=== PATIENT | female | born 1980 | race Caucasian/White ===

== ENCOUNTER 2018-11-24 22:35 | Emergency (ER) | payer OTHER ==
[2018-11-24 22:46] VITALS: BP 136/73; PULSE 89; TEMP 97.8; BMI 27.8
--- NOTE | 2018-11-24 22:57 | PDOC ---
History of Present Illness <Sarah Santos - Last Filed: 11/25/18 02:45> - History of Present Illness Initial Comments: 11/24/18 22:56 37 yo F with no significant pmh who p/w palpitations, parasthesias, lightheadedness. Patient reports two months of intermittent tinlging of finger tips, right thigh, palpitations, occurring intermittently with no identifiable triggers and resolving spontaneously. + 2 months of room spinning horizontally, with no identifiable triggers or alleviators. Also endorses occasional SOB, nervousness, neck stiffness, dull posterior headache, and hand contractions. Noticed symptoms today while walking at work. Patient denies vision change, cough, wheezing, orthopena, PND, N/V, F,C, CP, urinary complaints, hematuria, BPR, abdominal pain, diarrhea, constipation, weakness. PMHx: as noted above ROS: as noted SHx: Denies IVDA, tobacco use. Social Etoh. 1 cup coffe per day. Allergies: NKDA <Sai Chi - Last Filed: 11/25/18 02:53> - General Chief Complaint: Lightheaded Stated Complaint: PALPITATION Time Seen by Provider: 11/24/18 22:56 Past History <Sarah Santos - Last Filed: 11/25/18 02:45> - Past Medical History COPD: No - Suicide/Smoking/Psychosocial Hx Smoking History: Never smoked Hx Alcohol Use: No Drug/Substance Use Hx: No <Sai Chi - Last Filed: 11/25/18 02:53> - Past Medical History Allergies/Adverse Reactions: Allergies Allergy/AdvReac Type Severity Reaction Status Date / Time No Known Allergies Allergy Verified 11/24/18 22:46 Home Medications: Ambulatory Orders NK [No Known Home Medication] 11/24/18 Review of Systems - Review of Systems Comments:: 11/24/18 22:56 GENERAL/CONSTITUTIONAL: No fever or chills. No weakness. HEAD, EYES, EARS, NOSE AND THROAT: No change in vision. No ear pain or discharge. No sore throat. CARDIOVASCULAR: + SOB. No chest pain. RESPIRATORY: No cough, wheezing, or hemoptysis. GASTROINTESTINAL: No nausea, vomiting, diarrhea or constipation. GENITOURINARY: No dysuria, frequency, or change in urination. MUSCULOSKELETAL: +joint / muscle pain.+ neck pain. SKIN: No rash NEUROLOGIC:+ headache, vertigo. No loss of consciousness, or change in strength/ sensation. ENDOCRINE: No increased thirst. No abnormal weight change HEMATOLOGIC/LYMPHATIC: No anemia, easy bleeding, or history of blood clots. ALLERGIC/IMMUNOLOGIC: No hives or skin allergy. <AlonSai - Last Filed: 11/25/18 02:53> *Physical Exam - Vital Signs Last Vital Signs Temp Pulse Resp BP Pulse Ox 97.8 F 89 16 136/73 99 11/24/18 22:43 11/24/18 22:43 11/24/18 22:43 11/24/18 22:43 11/24/18 22:43 <Sarah Santos - Last Filed: 11/25/18 02:45> - Vital Signs Last Vital Signs Temp Pulse Resp BP Pulse Ox 97.8 F 89 16 136/73 99 11/24/18 22:43 11/24/18 22:43 11/24/18 22:43 11/24/18 22:43 11/24/18 22:43 - Physical Exam Comments: 11/24/18 22:57 GENERAL: Awake, alert, and fully oriented, in no acute distress HEAD: No signs of trauma, normocephalic, atraumatic EYES: PERRLA, EOMI, sclera anicteric, conjunctiva clear ENT: Hearing grossly normal, nares patent, oropharynx clear without exudates. Moist mucosa NECK: Normal ROM, supple, no lymphadenopathy, JVD, or masses LUNGS: No distress, speaks full sentences, clear to auscultation bilaterally HEART: Regular rate and rhythm, normal S1 and S2, no murmurs, rubs or gallops, peripheral pulses normal and equal bilaterally. ABDOMEN: Soft, nontender, normoactive bowel sounds. No guarding, no rebound. No masses EXTREMITIES : Normal inspection, Normal range of motion, no edema. No clubbing or cyanosis. NEUROLOGICAL: Cranial nerves II through XII grossly intact. Normal speech, normal gait, no focal sensorimotor deficits SKIN: Warm, Dry, normal turgor, no rashes or lesions noted <AlonSai - Last Filed: 11/25/18 02:53> ED Treatment Course - LABORATORY CBC & Chemistry Diagram: 11/24/18 23:43 11/25/18 00:40 - ADDITIONAL ORDERS Additional order review: Laboratory Results 11/25/18 11/25/18 11/25/18 01:13 00:40 00:40 Sodium 138 Potassium 4.1 Chloride 106 Carbon Dioxide 28 Anion Gap 4 L BUN 19 H Creatinine 0.9 Creat Clearance w eGFR 70.45 Random Glucose 92 Calcium 8.7 Total Bilirubin 0.5 AST 15 ALT 16 Alkaline Phosphatase 35 L Creatine Kinase Troponin I Total Protein 6.7 Albumin 3.3 L TSH Serum , Qual Negative Urine Color Yellow Urine Appearance Clear Urine pH 6.0 Ur Specific Hurricane 1.012 Urine Protein Negative Urine Glucose (UA) Negative Urine Ketones Negative Urine Blood Negative Urine Nitrite Negative Urine Bilirubin Negative Urine Urobilinogen 1.0 Ur Leukocyte Esterase 1+ H Urine WBC (Auto) 4 Urine RBC (Auto) 1 Urine Casts (Auto) 0 U Epithel Cells (Auto) 0.6 Urine Bacteria (Auto) 63.0 11/24/18 11/24/18 11/24/18 23:43 23:43 23:43 Sodium Cancelled 139 Potassium Cancelled 4.0 Chloride Cancelled 106 Carbon Dioxide Cancelled 29 Anion Gap Cancelled 5 L BUN Cancelled 19 H Creatinine Cancelled 1.0 Creat Clearance w eGFR Cancelled 62.39 Random Glucose Cancelled 97 Calcium Cancelled 9.0 Total Bilirubin Cancelled 0.6 AST Cancelled 10 L ALT Cancelled 18 Alkaline Phosphatase Cancelled 40 L Creatine Kinase 94 100 Troponin I < 0.02 < 0.02 Total Protein Cancelled 7.3 Albumin Cancelled 3.6 TSH 1.63 Serum , Qual Urine Color Urine Appearance Urine pH Ur Specific Hurricane Urine Protein Urine Glucose (UA) Urine Ketones Urine Blood Urine Nitrite Urine Bilirubin Urine Urobilinogen Ur Leukocyte Esterase Urine WBC (Auto) Urine RBC (Auto) Urine Casts (Auto) U Epithel Cells (Auto) Urine Bacteria (Auto) 11/24/18 23:43 Sodium Potassium Chloride Carbon Dioxide Anion Gap BUN Creatinine Creat Clearance w eGFR Random Glucose Calcium Total Bilirubin AST ALT Alkaline Phosphatase Creatine Kinase Troponin I Total Protein Albumin TSH Serum , Qual Negative Urine Color Urine Appearance Urine pH Ur Specific Hurricane Urine Protein Urine Glucose (UA) Urine Ketones Urine Blood Urine Nitrite Urine Bilirubin Urine Urobilinogen Ur Leukocyte Esterase Urine WBC (Auto) Urine RBC (Auto) Urine Casts (Auto) U Epithel Cells (Auto) Urine Bacteria (Auto) 11/24/18 23:43 RBC 4.56 MCV 87.4 MCHC 33.7 RDW 12.9 MPV 8.0 Neutrophils % 55.5 Lymphocytes % 30.6 Monocytes % 10.4 H Eosinophils % 2.9 Basophils % 0.6 - RADIOLOGY Radiology Studies Ordered: Category Date Time Status HEAD CT WITHOUT CONTRAST [CT] Stat CT Scan 11/25/18 00:01 Taken - Medications Given in the ED: ED Medications Discontinued Medications Generic Name Dose Route Start Last Admin Trade Name Alec PRN Reason Stop Dose Admin Cyclobenzaprine HCl 10 mg 11/25/18 01:54 11/25/18 02:02 Flexeril - PO 11/25/18 01:55 10 mg ONCE ONE Administration <Sarah Santos - Last Filed: 11/25/18 02:45> - LABORATORY CBC & Chemistry Diagram: 11/24/18 23:43 11/25/18 00:40 <Sai Chi - Last Filed: 11/25/18 02:53> Medical Decision Making - Medical Decision Making 11/24/18 23:17 37 yo F with no significant pmh who p/w 2 months of intermittent palpitations, parasthesias, lightheadedness, SOB, spinning sensation of room, occurring intermittently with no identifiable triggers and resolving spontaneously. Vitals wnl, AF, A&Ox3. Physical exam unremarkable. Denies vision change, cough , wheezing, orthopena, PND, N/V, F,C, CP, urinary complaints, hematuria, BPR, abdominal pain, diarrhea, constipation, weakness. Will assess for VBI/TIA, cardiac dysarrythmias, hypoglycemia, electrolyte abnml, metabolic and toxic derangements, acid-base disturbances, infection. Possible anxiety disorder. Ed Course: 11/24/18 23:36 EKG: NSR with incomplete RBBB. TWI V2-V3. Nml interval duration, axis, R wave progression. 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 <Sai Chi - Last Filed: 11/25/18 02:53> *DC/Admit/Observation/Transfer - Discharge Dispostion Decision to Admit order: No <SantosSarah - Last Filed: 11/25/18 02:45> <Sai Chi - Last Filed: 11/25/18 02:53> Diagnosis at time of Disposition: Palpitations, Lightheaded - Discharge Dispostion Disposition: HOME Condition at time of disposition: Stable - Referrals Referrals: Yoselin Logan MD [Primary Care Provider] - Preston Harper MD [Staff Physician] - - Patient Instructions Printed Discharge Instructions: DI for Numbness/tingling, DI for Dizziness- Nonvertigo Additional Instructions: Please return to the emergency department with any new or worsening symptoms or concerns. Please follow up with your primary care physician within 72 hours.
--- NOTE | 2018-11-24 23:07 | PDOC ---
Attending Attestation - HPI HPI: 11/24/18 23:42 The patient is a 37 year old female with no past medical history here today for evaluation of palpitations, lightheadedness, paresthesia in her hands, and room spinning. The patient reports that this has been going on for 1 month and also notes headache and neck stiffness. She reports coming in today because her symptoms were worse especially her paresthesia and dizziness. 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 Patient denies fever, chills. Denies chest pain, shortness of breath. Denies nausea, vomiting, diarrhea, abdominal pain. Allergies: NKA - Physicial Exam PE: 11/24/18 23:50 GENERAL: Awake, alert, and fully oriented, in no acute distress HEAD: No signs of trauma EYES: +lateral nystagmus when looking to the right in bilateral eyes. PERRLA, EOMI, sclera anicteric, conjunctiva clear ENT: Auricles normal inspection, hearing grossly normal, nares patent, oropharynx clear without exudates. Moist mucosa NECK: Normal ROM, supple, no lymphadenopathy, JVD, or masses LUNGS: Breath sounds equal, clear to auscultation bilaterally. No wheezes, and no crackles HEART: Regular rate and rhythm, normal S1 and S2, no murmurs, rubs or gallops ABDOMEN: Soft, nontender, normoactive bowel sounds. No guarding, no rebound. No masses EXTREMITIES: Normal range of motion, no edema. No clubbing or cyanosis. No cords, erythema, or tenderness NEUROLOGICAL: Cranial nerves II through XII grossly intact. Normal speech, normal gait SKIN: Warm, Dry, normal turgor, no rashes or lesions noted. <Connor Foster - Last Filed: 11/24/18 23:50> - Resident Resident Name: Sai Chi - ED Attending Attestation I have performed the following: I have examined & evaluated the patient, The case was reviewed & discussed with the resident, I agree w/resident's findings & plan - Medical Decision Making 11/25/18 02:45 Patient Name: NICOLE DAVENPORT THIS IS A PRELIMINARY REPORT FROM [facility] DATE OF SERVICE: 2018-11-25 01:42:14 IMAGES: 141 EXAM: HEAD CT WITHOUT CONTRAST HISTORY: Dizziness COMPARISON: None. FINDINGS: The ventricular system is midline and nondilated. The sulcal pattern is normal for the patient's age. There is no bleed, mass, extra-axial fluid collection or mass effect. No skull fracture or skull lesion is identified. The visualized paranasal sinuses and mastoid air cells are clear. IMPRESSION: Normal exam <Sarah Santos - Last Filed: 11/25/18 02:45> Attestations - Attestations 11/24/18 23:42 Documentation prepared by KEREN Huerta, acting as medical physics researcher for Sarah Santos MD. <Connor Foster - Last Filed: 11/24/18 23:50>
[2018-11-24 23:56] LABS: BASO % 0.6 % (0-2.0); EOS % 2.9 % (0-4.5); HEMATOCRIT 39.9 % (32.4-45.2); HEMOGLOBIN 13.4 GM/dL (10.7-15.3); LYMPH % 30.6 % (8-40); MCH 29.4 pg (25.7-33.7); MCHC 33.7 g/dl (32.0-36.0); MEAN CELL VOLUME 87.4 fl (80-96); MONO % 10.4 % (3.8-10.2); NEUT % 55.5 % (42.8-82.8); PLATELET COUNT 219 K/MM3 (134-434); RBC 4.56 M/mm3 (3.60-5.2); RDW 12.9 % (11.6-15.6); WHITE BLOOD COUNT 7.2 K/mm3 (4.0-10.0)
[2018-11-25 00:41] LABS: ALBUMIN 3.6 g/dl (3.4-5.0); ALK PHOS 40 U/L (45-117); ANION GAP 5 MMOL/L (8-16); BILIRUBIN,TOTAL 0.6 mg/dL (0.2-1); BLOOD UREA NITROGEN 19 mg/dL (7-18); CHLORIDE 106 mmol/L (98-107); CO2 29 mmol/L (21-32); GLUCOSE,RANDOM 97 mg/dL (74-106); SGOT/AST 10 U/L (15-37); SGPT/ALT 18 U/L (13-61); SODIUM 139 mmol/L (136-145); TOT PROT 7.3 g/dl (6.4-8.2)
[2018-11-25 01:40] LABS: EPI CELLS 0.6 /HPF (0-5/HPF); URINE APPEARANCE CLEAR; URINE BILIRUBIN NEGATIVE (NEGATIVE); URINE CASTS 0 /hpf (0-8); URINE COLOR YELLOW; URINE GLUCOSE (UA) NEGATIVE (NEGATIVE); URINE KETONE NEGATIVE (NEGATIVE); URINE LEUK ESTERASE 1+ (NEGATIVE); URINE NITRITE NEGATIVE (NEGATIVE); URINE PROTEIN NEGATIVE (NEGATIVE); URINE RBC 1 /hpf (0-4); URINE WBC 4 /hpf (0-5)
[2018-11-25 01:43] LABS: ALBUMIN 3.3 g/dl (3.4-5.0); ALK PHOS 35 U/L (45-117); ANION GAP 4 MMOL/L (8-16); BILIRUBIN,TOTAL 0.5 mg/dL (0.2-1); BLOOD UREA NITROGEN 19 mg/dL (7-18); CALCIUM 8.7 mg/dL (8.5-10.1); CHLORIDE 106 mmol/L (98-107); CO2 28 mmol/L (21-32); CREATININE 0.9 mg/dL (0.55-1.3); GLUCOSE,RANDOM 92 mg/dL (74-106); POTASSIUM 4.1 mmol/L (3.5-5.1); SGOT/AST 15 U/L (15-37); SGPT/ALT 16 U/L (13-61); SODIUM 138 mmol/L (136-145); TOT PROT 6.7 g/dl (6.4-8.2)
[2018-11-25] MEDS ORDERED: CYCLOBENZAPRINE HCL 10 MG TABLET (FP) PO ONE (01:54)
[2018-11-25] MEDS ORDERED: CYCLOBENZAPRINE HCL 10 MG TABLET (FP) ONE (02:00)
--- NOTE | 2018-11-26 10:33 | EKG ---
Test Reason : Blood Pressure : / mmHG Vent. Rate : 095 BPM Atrial Rate : 095 BPM P-R Int : 164 ms QRS Dur : 104 ms QT Int : 354 ms P-R-T Axes : 076 062 064 degrees QTc Int : 444 ms NORMAL SINUS RHYTHM INCOMPLETE RIGHT BUNDLE BRANCH BLOCK ANTERIOR INFARCT , AGE UNDETERMINED ABNORMAL ECG NO PREVIOUS ECGS AVAILABLE Confirmed by FREDDIE VILLEGAS MD ([id number]) on 11/26/2018 10:32:24 AM Referred By: Confirmed By:FREDDIE VILLEGAS MD
== END 2018-11-25 03:00 | disposition home or self-care (01) ==
LOC: JER 22:35
DX: R00.2 Palpitations (principal); R42 Dizziness and giddiness; R06.02 Shortness of breath; M25.50 Pain in unspecified joint; R51 Headache
CPT/HCPCS: 36415; 70450-TC; 80053; 81003; 82550; 84443; 84484; 84703; 85025; 93005; 93010; 99282-25